=== PATIENT | male | born 1980 | race Two or more races ===

== ENCOUNTER 2017-01-06 04:33 | Emergency (ER) | payer SELFPAY ==
[~2017-01-06] VITALS: Ht 167.6 cm; Wt 95.3 kg
[2017-01-06 05:21] LABS: BASO # 0.1 x10^3/uL (0.0-0.2); BASO % 1 % (0-3); EOS % 1 % (0-3); HEMATOCRIT 45.4 % (39.0-53.0); HEMOGLOBIN 15.6 g/dL (13.0-17.5); LYMPH # 1.6 x10^3/uL (1.0-4.8); LYMPH % 16 % (24-48); MEAN CORPUSCULAR HEMOGLOBIN 31 pg (25-35); MEAN CORPUSCULAR HGB CONC 34 g/dL (31-37); MEAN CORPUSCULAR VOLUME 89 fL (79-100); MONO % 5 % (0-9); NEUT % 78 % (31-73); PLATELET COUNT 173 x10^3/uL (140-400); RED BLOOD COUNT 5.12 x10^6/uL (4.30-5.70); RED CELL DISTRIBUTION WIDTH 12.9 % (11.5-14.5); WHITE BLOOD COUNT 10.3 x10^3/uL (4.0-11.0)
[2017-01-06 05:23] LABS: BILIRUBIN,URINE NEGATIVE (NEG); GLUCOSE,URINE NEGATIVE (NEG); NITRITE,URINE NEGATIVE (NEG); PROTEIN,URINE NEGATIVE (NEG-TRACE); UROBILINOGEN,URINE 0.2 mg/dL (0.2 mg/dL)
[2017-01-06 05:29] LABS: BACTERIA,URINE 0 /HPF (0-FEW); RBC,URINE TNTC /HPF (0-2); SQUAMOUS EPITHELIAL CELL,UR OCC /LPF; WBC,URINE OCC /HPF (0-4)
[2017-01-06 05:47] LABS: CREATININE 1.1 mg/dL (0.7-1.3); GFR 75.7; POTASSIUM 3.8 mmol/L (3.5-5.1)
[2017-01-06 05:56] LABS: ALBUMIN/GLOBULIN RATIO 1.1 (1.0-1.7); TOTAL BILIRUBIN 0.7 mg/dL (0.2-1.0); TOTAL PROTEIN 7.5 g/dL (6.4-8.2)
[2017-01-06] MEDS ORDERED: ONDANSETRON PF 4 MG/2 ML VIAL. IV ONE (06:00)
[2017-01-06] MEDS ORDERED: HYDROmorphone 2 MG/ML VIAL IV ONE (06:00)
[2017-01-06] MEDS ORDERED: KETOROLAC 15 MG/ML VIAL. IV ONE (06:00)
--- NOTE | 2017-01-06 06:05 | RAD ---
Examination: CT of the abdomen and pelvis without contrast HISTORY: History of right flank pain, blood in the uterine COMPARISON: None available TECHNIQUE: Axial CT images of the abdomen and pelvis were performed without contrast. Coronal and sagittal views was performed. Exposure: One or more of the following individualized dose reduction techniques were utilized for this examination: 1. Automated exposure control 2. Adjustment of the mA and/or kV according to patient size 3. Use of iterative reconstruction technique FINDINGS: The visualized bibasilar lungs demonstrate minimal bibasilar atelectasis. No evidence of free air identified in the abdomen. The evaluation of solid organs is limited due to lack of IV contrast. Evaluation of the bowel is limited due to lack of oral contrast. There is decreased attenuation throughout the liver likely hepatic steatosis. The visualized spleen, and adrenals grossly appears unremarkable. The gallbladder is mildly distended. The stomach is mildly distended. The small bowel is nondilated. The appendix is normal. Feces and gas noted in the colon. The urinary bladder is mildly distended Mild right-sided hydronephrosis is identified. There is a 4 mm calculus identified at the right ureter. Mild proximal right hydroureter identified. There is minimal flattening identified about the proximal right ureter to No evidence of lytic bony destructive lesion. IMPRESSION: 1. A 4 mm calculus identified in the proximal right ureter causing mild right-sided hydronephrosis and proximal right hydroureter. Minimal fat stranding identified about the proximal right ureter. 2. Hepatic steatosis. Electronically signed by: Dung Aldridge MD (01/06/2017 6:02 AM)
[2017-01-06] MEDS ORDERED: OXYC-323 PO (06:12)
[2017-01-06] MEDS ORDERED: TAMS0.4C97 PO (06:12)
[2017-01-06] MEDS ORDERED: IBUP-1007 PO (06:12)
[2017-01-06] MEDS ORDERED: ONDA4TAB10 SL (06:12)
--- NOTE | 2017-01-06 06:13 | PHYS DOC ---
Past Medical History Past Medical History: No Pertinent History Past Surgical History: No Surgical History Alcohol Use: None Drug Use: None Adult General Chief Complaint Chief Complaint: MULTIPLE COMPLAINTS HPI HPI Patient is a 36 year old [f__sex] who presents with [] Review of Systems Review of Systems Constitutional: Denies fever or chills [] Eyes: Denies change in visual acuity, redness, or eye pain [] HENT: Denies nasal congestion or sore throat [] Respiratory: Denies cough or shortness of breath [] Cardiovascular: No additional information not addressed in HPI [] GI: Denies abdominal pain, nausea, vomiting, bloody stools or diarrhea [] : Denies dysuria or hematuria [] Musculoskeletal: Denies back pain or joint pain [] Integument: Denies rash or skin lesions [] Neurologic: Denies headache, focal weakness or sensory changes [] Endocrine: Denies polyuria or polydipsia [] Current Medications Current Medications Current Medications Medications (Trade) Dose Ordered Sig/Margarita Start Time Stop Time Status Last Admin Dose Admin Hydromorphone HCl (Dilaudid) 1 mg 1X ONCE 01/06/17 06:00 01/06/17 06:01 DC 01/06/17 05:52 1 MG Ketorolac Tromethamine (Toradol) 15 mg 1X ONCE 01/06/17 06:00 01/06/17 06:01 DC 01/06/17 05:49 15 MG Ondansetron HCl (Zofran) 4 mg 1X ONCE 01/06/17 06:00 01/06/17 06:01 DC 01/06/17 05:45 4 MG Allergies Allergies Allergies Coded Allergies Type Severity Reaction Last Updated Verified No Known Drug Allergies 01/06/17 No Physical Exam Physical Exam Constitutional: Well developed, well nourished, no acute distress, non-toxic appearance. [] HENT: Normocephalic, atraumatic, bilateral external ears normal, oropharynx moist, no oral exudates, nose normal. [] Eyes: PERRLA, EOMI, conjunctiva normal, no discharge. [] Neck: Normal range of motion, no tenderness, supple, no stridor. [] Cardiovascular:Heart rate regular rhythm, no murmur [] Lungs & Thorax: Bilateral breath sounds clear to auscultation [] Abdomen: Bowel sounds normal, soft, no tenderness, no masses, no pulsatile masses. [] Skin: Warm, dry, no erythema, no rash. [] Back: No tenderness, no CVA tenderness. [] Extremities: No tenderness, no cyanosis, no clubbing, ROM intact, no edema. [] Neurologic: Alert and oriented X 3, normal motor function, normal sensory function, no focal deficits noted. [] Psychologic: Affect normal, judgement normal, mood normal. [] Current Patient Data Vital Signs Vital Signs Date Time Temp Pulse Resp B/P (MAP) Pulse Ox O2 Delivery O2 Flow Rate FiO2 01/06/17 05:52 16 Room Air 01/06/17 05:03 97.9 63 126/80 (95) 97 97.9 Lab Values Laboratory Tests Test 01/06/17 05:10 01/06/17 05:16 White Blood Count 10.3 x10^3/uL (4.0-11.0) Red Blood Count 5.12 x10^6/uL (4.30-5.70) Hemoglobin 15.6 g/dL (13.0-17.5) Hematocrit 45.4 % (39.0-53.0) Mean Corpuscular Volume 89 fL (79-100) Mean Corpuscular Hemoglobin 31 pg (25-35) Mean Corpuscular Hemoglobin Concent 34 g/dL (31-37) Red Cell Distribution Width 12.9 % (11.5-14.5) Platelet Count 173 x10^3/uL (140-400) Neutrophils (%) (Auto) 78 % (31-73) H Lymphocytes (%) (Auto) 16 % (24-48) L Monocytes (%) (Auto) 5 % (0-9) Eosinophils (%) (Auto) 1 % (0-3) Basophils (%) (Auto) 1 % (0-3) Neutrophils # (Auto) 8.0 x10^3uL (1.8-7.7) H Lymphocytes # (Auto) 1.6 x10^3/uL (1.0-4.8) Monocytes # (Auto) 0.5 x10^3/uL (0.0-1.1) Eosinophils # (Auto) 0.1 x10^3/uL (0.0-0.7) Basophils # (Auto) 0.1 x10^3/uL (0.0-0.2) Sodium Level 135 mmol/L (136-145) L Potassium Level 3.8 mmol/L (3.5-5.1) Chloride Level 102 mmol/L (98-107) Carbon Dioxide Level 24 mmol/L (21-32) Anion Gap 9 (6-14) Blood Urea Nitrogen 17 mg/dL (8-26) Creatinine 1.1 mg/dL (0.7-1.3) Estimated GFR (Cockcroft-Gault) 75.7 BUN/Creatinine Ratio 15 (6-20) Glucose Level 138 mg/dL (70-99) H Calcium Level 9.0 mg/dL (8.5-10.1) Total Bilirubin 0.7 mg/dL (0.2-1.0) Aspartate Amino Transferase (AST) 27 U/L (15-37) Alanine Aminotransferase (ALT) 38 U/L (16-63) Alkaline Phosphatase 99 U/L (46-116) Total Protein 7.5 g/dL (6.4-8.2) Albumin 4.0 g/dL (3.4-5.0) Albumin/Globulin Ratio 1.1 (1.0-1.7) Lipase 186 U/L (73-393) Urine Collection Type Unknown Urine Color Yellow Urine Clarity Cloudy Urine pH 8.0 Urine Specific [place] 1.020 Urine Protein Negative mg/dL (NEG-TRACE) Urine Glucose (UA) Negative mg/dL (NEG) Urine Ketones (Stick) Negative mg/dL (NEG) Urine Blood Large (NEG) Urine Nitrite Negative (NEG) Urine Bilirubin Negative (NEG) Urine Urobilinogen Dipstick 0.2 mg/dL (0.2 mg/dL) Urine Leukocyte Esterase Trace (NEG) Urine RBC Tntc /HPF (0-2) Urine WBC Occ /HPF (0-4) Urine Squamous Epithelial Cells Occ /LPF Urine Bacteria 0 /HPF (0-FEW) Urine Mucus Slight /LPF Laboratory Tests 01/06/17 05:10 Laboratory Tests 01/06/17 05:10 EKG EKG [] Radiology/Procedures Radiology/Procedures [] Course & Med Decision Making Course & Med Decision Making Pertinent Labs and Imaging studies reviewed. (See chart for details) [] Dragon Disclaimer Dragon Disclaimer This electronic medical record was generated, in whole or in part, using a voice recognition dictation system. Departure Departure Impression: Primary Impression: Renal colic on right side Disposition: 01 HOME, SELF-CARE Condition: IMPROVED Referrals: NO PCP (PCP) Patient Instructions: Diet for Kidney Stones, Kidney Stones Additional Instructions: Return to the closest ER if your pain increases or if you are not able to take down your pain medicines. Scripts Ondansetron (ZOFRAN ODT) 4 Mg Tab.rapdis 1 TAB SL Q6HRS Y for NAUSEA, #12 TAB Prov: MARILIA WING MD 01/06/17 Oxycodone/Apap 5-325 (PERCOCET 5-325 MG TABLET) 1 Each Tablet 1 TAB PO Q6-8HRS Y for PAIN, #20 TAB Prov: MARILIA WING MD 01/06/17 Ibuprofen (IBUPROFEN) 600 Mg Tablet 600 MG PO PRN Q6HRS Y for PAIN, #20 TAB Prov: MARILIA WING MD 01/06/17 Tamsulosin Hcl (FLOMAX) 0.4 Mg Cap.er.24h 1 CAP PO HS, #7 CAP 11 Refills Prov: MARILIA WING MD 01/06/17 MARILIA WING MD Jan 06, 2017 06:13
[2017-01-06 06:50] VITALS: BP 107/60
== END 2017-01-06 07:00 | disposition home or self-care (01) ==
LOC: ER 04:33
DX: N23 Unspecified renal colic (principal)
CPT/HCPCS: 36415; 74176; 80053; 81001; 83690; 85027; 87086; 96374; 96375; 99285; J1170; J1885; J2405